=== PATIENT | male | born 1980 ===

== ENCOUNTER 2020-12-04 19:59 | Emergency (ER) | payer SELFPAY ==
[2020-12-04 21:44] VITALS: BP 154/106
[2020-12-04] MEDS ORDERED: IBUPROFEN 600 MG TAB PO ONE (22:25)
--- NOTE | 2020-12-04 22:30 | Emergency Department Report ---
ED Fall HPI - General Chief Complaint: Fall Stated Complaint: BACK/SIDE PAIN Source: patient Mode of arrival: Ambulatory - History of Present Illness MD Complaint: fall -: This evening When Fall Occurred: 1-[address] Fall Occurred: home Loss of Consciousness: none Prolonged Down Time?: no Severity scale (0 -10): 10 Quality: sharp - Related Data Previous Rx's Medication Instructions Recorded Last Taken Type Ibuprofen [Motrin 800 MG tab] 800 mg PO Q8HR PRN #30 tablet 12/04/20 Unknown Rx traMADoL [Ultram 50 MG tab] 50 mg PO Q6HR PRN #15 tablet 12/04/20 Unknown Rx Allergies Allergy/AdvReac Type Severity Reaction Status Date / Time No Known Allergies Allergy Unverified 12/04/20 22:24 ED Review of Systems ROS: Stated complaint: BACK/SIDE PAIN Other details as noted in HPI ED Past Medical Hx - Past Medical History Previous Medical History?: No - Surgical History Past Surgical History?: No - Social History Smoking Status: Current Some Day Smoker Substance Use Type: None - Medications Home Medications: Home Medications Medication Instructions Recorded Confirmed Last Taken Type Ibuprofen [Motrin 800 MG tab] 800 mg PO Q8HR PRN #30 tablet 12/04/20 Unknown Rx traMADoL [Ultram 50 MG tab] 50 mg PO Q6HR PRN #15 tablet 12/04/20 Unknown Rx ED Physical Exam - General Limitations: Language Barrier General appearance: alert, in no apparent distress - Head Head exam: Present: atraumatic, normocephalic - Eye Eye exam: Present: normal appearance, PERRL - ENT ENT exam: Present: mucous membranes moist - Respiratory Respiratory exam: Present: chest wall tenderness (Right side rib tenderness) - Cardiovascular Cardiovascular Exam: Present: regular rate, normal rhythm. Absent: systolic murmur, diastolic murmur, rubs, gallop - GI/Abdominal GI/Abdominal exam: Present: soft. Absent: distended, tenderness - Extremities Exam Extremities exam: Present: normal inspection, full ROM - Back Exam Back exam: Present: normal inspection - Neurological Exam Neurological exam: Present: alert, oriented X3, normal gait - Psychiatric Psychiatric exam: Present: normal affect, normal mood - Skin Skin exam: Present: warm, dry, intact, normal color. Absent: rash ED Course Vital Signs 12/04/20 21:40 Temperature 98.5 F Pulse Rate 89 Respiratory 18 Rate Blood Pressure 154/106 O2 Sat by Pulse 97 Oximetry ED Medical Decision Making - Radiology Data Radiology results: report reviewed [facility] [address] [place] [address] XRay Report Signed Patient: BRENNAN GOLDMAN MR#: [id number] : 1980 Acct:[id number] Age/Sex: 40 / M ADM Date: 12/04/20 Loc: ED Attending Dr: Ordering Physician: BRIDGETT CERVANTES Date of Service: 12/04/20 Procedure(s): XR ribs UNI w PA Chest 3+V RT Accession Number(s): [id number] cc: BRIDGETT CERVANTES Fluoro Time In Minutes: PA CHEST AND RIGHT RIB DETAIL 4 VIEWS INDICATION / CLINICAL INFORMATION: Fall with right lower chest wall pain. COMPARISON: None available. FINDINGS: The heart size and pulmonary vasculature are normal. The lungs are clear. There is no evidence of pneumothorax or pleural effusion. There is an acute, mildly displaced fracture of the right seventh rib anterolaterally. No other rib fractures are seen. Signer Name: Michael Ray MD Signed: 12/04/2020 11:02 PM Workstation Name: [id number] Transcribed By: RT Dictated By: Michael Ray MD Electronically Authenticated By: Michael Ray MD Signed Date/Time: 12/04/202301 DD/ 99 TD/TT: Print Cancel Critical care attestation.: If time is entered above; I have spent that time in minutes in the direct care of this critically ill patient, excluding procedure time. ED Disposition Clinical Impression: Rib fractures Qualifiers: Encounter type: initial encounter Fracture type: closed Laterality: right Qualified Code(s): S22.41XA - Multiple fractures of ribs, right side, initial encounter for closed fracture Disposition: DC-01 TO HOME OR SELFCARE Is pt being admited?: No Does the pt Need Aspirin: No Condition: Stable Instructions: Rib Fracture, [id number] Additional Instructions: X-ray shows you have a fracture seventh rib on the right side. Treatment for rib fractures or pain medication. Also recommend you use it incentive spirometer 8-10 times a day. Follow-up with your primary care provider. Be sure to increase your fluid intake with taking pain medication. Do not operate heavy machinery while taking tramadol. La radiografa muestra que tienes joe fractura de sptima roberto carlos en el lado derecho. Tratamiento para fracturas de costillas o analgsicos. Tambin le recomendamos que lo utilice el espirmetro de incentivos 8-10 veces al da. Seguimiento con amin proveedor de atencin primaria. Asegrate de aumentar la ingesta de lquidos con nicol analgsicos. No utilice maquinaria pesada mientras tome tramadol. Prescriptions: Ibuprofen [Motrin 800 MG tab] 800 mg PO Q8HR PRN #30 tablet PRN Reason: Pain , Severe (7-10) traMADoL [Ultram 50 MG tab] 50 mg PO Q6HR PRN #15 tablet PRN Reason: Pain Referrals: PRIMARY CARE, [Primary Care Provider] - 3-5 Days [facility] [Provider Group] - 3-5 Days Forms: Work/School Release Form(ED)
--- NOTE | 2020-12-04 23:07 | XRay Report ---
PA CHEST AND RIGHT RIB DETAIL 4 VIEWS INDICATION / CLINICAL INFORMATION: Fall with right lower chest wall pain. COMPARISON: None available. FINDINGS: The heart size and pulmonary vasculature are normal. The lungs are clear. There is no evidence of pne umothorax or pleural effusion. There is an acute, mildly displaced fracture of the right seventh rib anterolaterally. No other rib f ractures are seen. Signer Name: Michael Ray MD Signed: 12/04/2020 11:02 PM Workstation Name: [id number]
[2020-12-05] MEDS ORDERED: ACETAMINOPHEN W/CODEINE 300-30 MG TAB PO ONE (00:04)
== END 2020-12-05 00:20 | disposition home or self-care (01) ==
LOC: ED 19:59
DX: S22.41XA Multiple fractures of ribs, right side, initial encounter for closed fracture (principal); F17.200 Nicotine dependence, unspecified, uncomplicated; Z79.899 Other long term (current) drug therapy; W18.30XA Fall on same level, unspecified, initial encounter; Y93.89 Activity, other specified; Y92.89 Other specified places as the place of occurrence of the external cause; Y99.8 Other external cause status
CPT/HCPCS: 99283